=== PATIENT | male | born 1985 | race Caucasian/White ===

== ENCOUNTER 2017-03-08 05:38 | Emergency (ER) | payer MEDICAID ==
--- NOTE | 2017-03-08 05:49 | Emergency Department Record ---
History of Present Illness - General Chief Complaint: Headache Migraine Stated Complaint: HEADACHE Time Seen by Provider: 03/08/17 05:48 Source: Patient - History of Present Illness Initial Comments: The patient and his report that he went to bed last night with a headache. He woke up this morning with a bad migraine on his left side of his head and into the left side of his neck. He states this is typical of his migraines only it feels worse than usual. He has nausea and photophobia. He states there is a point on his left side of his neck that helps his headache if he pushes on it. He denies f,c,vomiting, stiff neck, URI symptoms, sore throat. MD Complaint: "Migraine" - Related Data Home Medications Medication Instructions Recorded Confirmed Last Taken Hydrocodone/Acetaminophen 1 tab PO QID 03/08/17 03/08/17 Unknown [Hydrocodone/Acetaminophen 10mg/325mg] Methocarbamol [Robaxin] 750 mg PO BID 03/08/17 03/08/17 Unknown Allergies Allergy/AdvReac Type Severity Reaction Status Date / Time duloxetine HCl Allergy DIFFICULTY Verified 07/15/14 17:45 [From Cymbalta] BREATHING gabapentin [From Neurontin] Allergy DIFFICULTY Verified 07/15/14 17:45 BREATHING pregabalin [From Lyrica] Allergy DIFFICULTY Verified 07/15/14 17:45 BREATHING Review of Systems Reviewed: No additional complaints except as noted below Constitutional: Reports: As per HPI. Denies: Chills, Fever, Malaise, Night sweats, Weakness, Weight change Eyes: Reports: As per HPI. Denies: Eye discharge, Eye pain, Photophobia, Vision change ENT: Reports: As per HPI. Denies: Congestion, Dental pain, Ear pain, Epistaxis , Hearing loss, Throat pain Respiratory: Reports: As per HPI. Denies: Cough, Dyspnea, Hemoptysis, Stridor, Wheezes Cardiovascular: Reports: As per HPI. Denies: Arrhythmia, Chest pain, Dyspnea on exertion, Edema, Murmurs, Orthopnea, Palpitations, Paroxysmal nocturnal dyspnea, Rheumatic Fever, Syncope Endocrine: Reports: As per HPI. Denies: Fatigue, Heat or cold intolerance, Polydipsia, Polyuria Gastrointestinal: Reports: As per HPI. Denies: Abdominal pain, Constipation, Diarrhea, Hematemesis, Hematochezia, Melena, Nausea, Vomiting Genitourinary: Reports: As per HPI. Denies: Dysuria, Frequency, Hematuria, Incontinence, Retention, Testicular pain, Testicular mass, Urgency Musculoskeletal: Reports: As per HPI. Denies: Arthralgia, Back pain, Gout, Joint swelling, Myalgia, Neck pain Skin: Reports: As per HPI. Denies: Bruising, Change in color, Change in hair/ nails, Lesions, Pruritus, Rash Neurological: Reports: As per HPI. Denies: Abnormal gait, Confusion, Headache, Numbness, Paresthesias, Seizure, Tingling, Tremors, Vertigo, Weakness Psychiatric: Reports: As per HPI. Denies: Anxiety, Auditory hallucinations, Depression, Homicidal thoughts, Suicidal thoughts, Visual hallucinations Hematological/Lymphatic: Reports: As per HPI. Denies: Anemia, Blood Clots, Easy bleeding, Easy bruising, Swollen glands Past Medical History - SOCIAL HISTORY Smoking Status: Current every day smoker - RESPIRATORY Hx Respiratory Disorders: No - CARDIOVASCULAR Hx Cardio Disorders: No - NEURO Hx Neuro Disorders: No - GI Hx GI Disorders: No - Hx Genitourinary Disorders: No - ENDOCRINE Hx Diabetes: No Hx Thyroid Disease: No - MUSCULOSKELETAL Hx Arthritis: Yes Comment:: back DJD, spinal stenosis - PSYCH Hx Psych Problems: No - HEMATOLOGY/ONCOLOGY Hx Hematology/Oncology Disorders: No Physical Exam - General General Appearance: Alert, Oriented x3, Cooperative, Severe distress, Other ( sitting in dark room, holding and pressing onto the left neck muscle at his left occipital ridge) - Head Head exam: Normal inspection - Eye Eye exam: Normal appearance, PERRL, Other (photophobia) Pupils: Normal accommodation - ENT ENT exam: Normal exam, Mucous membranes moist, Normal external ear exam, Normal orophraynx, TM's normal bilaterally Ear exam: Normal external inspection. negative: External canal tenderness Nasal Exam: Normal inspection. negative: Discharge, Sinus tenderness Mouth exam: Normal external inspection, Tongue normal Teeth exam: Normal inspection. negative: Dental caries Throat exam: Normal inspection. negative: Tonsillar erythema, Tonsillar exudate - Neck Neck exam: Normal inspection, Full ROM, Tenderness (muscle tenderness tightness left trapezius) - Respiratory Respiratory exam: Normal lung sounds bilaterally. negative: Respiratory distress - Cardiovascular Cardiovascular Exam: Regular rate, Normal rhythm, Normal heart sounds - GI/Abdominal GI/Abdominal exam: Soft, Normal bowel sounds. negative: Tenderness - Rectal Rectal exam: Deferred - exam: Deferred - Extremities Extremities exam: Normal inspection, Full ROM, Normal capillary refill. negative: Tenderness - Back Back exam: Reports: Normal inspection, Full ROM. Denies: Muscle spasm, Rash noted, Tenderness - Neurological Neurological exam: Alert, CN II-XII intact, Normal gait, Oriented X3, Reflexes normal - Psychiatric Psychiatric exam: Normal affect, Normal mood - Skin Skin exam: Dry, Intact, Normal color, Warm Course Vital Signs 03/08/17 05:45 Pulse Rate [ 76 Pulse Ox Probe] Respiratory 24 Rate Blood Pressure 123/88 [Left Arm] Pulse Ox 99 - Reevaluation(s) Reevaluation #1: Nausea has resolved, headache has improved. Will give norflex for his neck muscle spasm. 03/08/17 06:37 Reevaluation #2: Ready for DC home. Will go to bed to sleep today. "I'm so much better." 03/08/17 06:51 03/08/17 06:53 Medical Decision Making - Management Options MDM Management: No Additional Work-up Planned Disposition Disposition: Discharge Clinical Impression: Migraine Qualifiers: Migraine type: unspecified Status migrainosus presence: without status migrainosus Intractability: not intractable Qualified Code(s): G43.909 - Migraine, unspecified, not intractable, without status migrainosus Condition: (2) Stable Instructions: Migraine Headache (ED) Additional Instructions: Home to bed. Follow up with PCP as needed. Quality - Quality Measures Quality Measures: N/A - Blood Pressure Screening Does Patient Have Any of the Following: No Blood Pressure Classification: Pre-Hypertensive BP Reading Systolic Measurement: 123 Diastolic Measurement: 88 Screening for High Blood Pressure: < Normal BP, F/U Not Required > [G8783] Pre-Hypertensive Follow-up Interventions: Follow-up with rescreen every year.
[2017-03-08] MEDS: DIPHENHYDRAMINE HCL IV 50 MG/ML VIAL IVP ONE (06:12)
[2017-03-08] MEDS: METOCLOPRAMIDE HCL 10 MG/2 ML VIAL IVP ONE (06:12)
[2017-03-08] MEDS: KETOROLAC 30 MG/ML VIAL IVP ONE (06:12)
[2017-03-08] MEDS: 0.9 % SODIUM CHLORIDE 1,000 ML BAG IV ONE (06:13)
[2017-03-08] MEDS: ORPHENADRINE CITRATE 60MG/2ML VIAL IVP ONE (06:45)
== END 2017-03-08 07:12 | disposition home or self-care (01) ==
LOC: ER 05:38
DX: G43.909 Migraine, unspecified, not intractable, without status migrainosus (principal); M54.2 Cervicalgia; R11.0 Nausea; H53.149 Visual discomfort, unspecified
CPT/HCPCS: 99284 ×2; 96374; 96375; J1885; J1200; J2360; J2765